=== PATIENT | male | born 1945 | race American Indian/Alaskan Native ===

== ENCOUNTER 2019-03-29 13:21 | Observation (INO) | payer MEDICARE ==
[2019-03-22 09:35] LABS: Basophils % (Auto) 1.1 % (0.0-1.8); Eosinophils # (Auto) 0.3 K/mm3 (0.0-0.4); Eosinophils % (Auto) 6.9 % (0.0-4.3); Hematocrit 38.5 % (35.5-45.6); Lymphocytes # (Auto) 0.7 K/mm3 (1.2-5.4); Lymphocytes % (Auto) 18.9 % (13.4-35.0); Mean Corpuscular HGB Conc 34 % (32-34); Mean Corpuscular Volume 82 fl (84-94); Monocytes # (Auto) 0.5 K/mm3 (0.0-0.8); Monocytes % (Auto) 12.6 % (0.0-7.3); Platelet Count 182 K/mm3 (140-440); Red Cell Distribution Width 15.8 % (13.2-15.2)
[2019-03-22 09:50] LABS: Alanine Aminotransferase 25 units/L (7-56); Albumin 3.6 g/dL (3.9-5); BUN/Creatinine Ratio 10; Blood Urea Nitrogen 14 mg/dL (9-20); Calcium 8.8 mg/dL (8.4-10.2); Hemolysis Index 11
[2019-03-22 09:57] LABS: INR 0.94 (0.87-1.13)
[2019-03-22 09:58] LABS: Partial Thromboplastin Time 26.3 Sec. (24.2-36.6)
--- NOTE | 2019-03-22 11:15 | Anesthesia Consultation ---
Anesthesia Consult and Med Hx Date of service: 03/22/19 - Airway Anesthetic Teeth Evaluation: Good ROM Head & Neck: Adequate Mental/Hyoid Distance: Adequate Mallampati Class: Class II Intubation Access Assessment: Probably Good - Pulmonary Exam CTA: Yes - Cardiac Exam Cardiac Exam: RRR - Pre-Operative Health Status ASA Pre-Surgery Classification: ASA2 Proposed Anesthetic Plan: General - Pulmonary Hx Smoking: No Hx Sleep Apnea: No (CLAY PRE SCREEN HIGH RISK) - Cardiovascular System Hx Hypertension: Yes Hx Heart Attack/AMI: No Hx Percutaneous Transluminal Coronary Angioplasty (PTCA): No - Central Nervous System CVA: No - Gastrointestinal Hx Gastroesophageal Reflux Disease: No - Endocrine Hx Renal Disease: No Hx Liver Disease: No Hx Insulin Dependent Diabetes: No Hx Non-Insulin Dependent Diabetes: No Hx Thyroid Disease: No - Other Systems Hx Obesity: No - Additional Comments Anesthesia Medical History Comments: No prior GA. No FHx anesthetic complications.
[2019-03-29] MEDS ORDERED: DIPRIVAN 10 MG/ML IV ONE (14:06)
[2019-03-29] MEDS ORDERED: XYLOCAINE MPF 2% ONE (14:06)
[2019-03-29] MEDS ORDERED: SUBLIMAZE ONE ×2 (14:06→15:28)
[2019-03-29] MEDS: LACTATED RINGERS 1,000 ML IV SCH ×2 (14:35→20:07)
[2019-03-29] MEDS ORDERED: ANCEF/STERILE WATER 2 GM/20 ML IV NR (15:00)
[2019-03-29] MEDS ORDERED: ZOFRAN ONE (16:01)
[2019-03-29] MEDS ORDERED: NACL 0.9% IR PRN ×2 (16:06→20:00)
[2019-03-29] MEDS ORDERED: AMBIEN PO PRN (16:06)
[2019-03-29] MEDS ORDERED: ZOFRAN IV PRN (16:06)
--- NOTE | 2019-03-29 16:06 | Post Operative Note ---
Date of procedure: 03/29/19 Pre-op diagnosis: urinary retention Post-op diagnosis: same Findings: middle lobe Procedure: cysto turp Surgeon: AMRITA MILLIGAN Estimated blood loss: 50-100ml Pathology: list (prostate) Specimen disposition: to lab Condition: stable Disposition: PACU
[2019-03-29] MEDS ORDERED: SUBLIMAZE IV PRN (16:38)
--- NOTE | 2019-03-29 16:38 | Anesthesia Day of Surgery ---
Anesthesia Day of Surgery - Day of Surgery Patient Examined: Yes Patient H&P Reviewed: Yes Patient is NPO: Yes
--- NOTE | 2019-03-29 16:47 | Operative Report ---
PREOPERATIVE DIAGNOSES: Urinary retention, prominent middle lobe; previous prostate cancer. POSTOPERATIVE DIAGNOSES: Urinary retention, prominent middle lobe; previous prostate cancer. PROCEDURE: Cystoscopy, transurethral resection of prostate. SURGEON: Jimi Nur MD ANESTHESIA: General. FINDINGS: This is a gentleman with urinary retention and high voiding pressures. He has been catheterizing himself. We told him we make a channel. We did not want to do that much to make him incontinent. DESCRIPTION OF PROCEDURE: The patient was brought to the operating room and placed on the operating table. Following induction of anesthesia, placed in lithotomy position, prepped and draped in usual sterile fashion. Cystourethroscopy showed a prominent middle lobe. This was resected down to capsular fibers. Hemostasis was excellent. The trigone and bladder was somewhat inflamed. We did not disturb it. Both lobes had some tissue, part of the middle lobe fell into the prostatic urethra, which had to be trimmed. The patient tolerated the procedure well. We did as little as possible. We want to give him a good channel so we could avoid and not catheterize himself. He tolerated the procedure well. Minimal blood loss, approximately 50 mL. He was brought to recovery in stable condition. JOB# [id number] MANJEET/ROCHELLE
--- NOTE | 2019-03-29 17:52 | Post Anesthesia Evaluation ---
- Post Anesthesia Evaluation Patient Participated: Yes Airway Patent: Yes Stable Respiratory Function: Yes Nausea/Vomiting: No Temp > 96.8F: Yes Pain Manageable: Yes Adequeate Hydration: Yes Anesthesia Complications: No
[2019-03-29] MEDS: PERCOCET 5/325 PO PRN (21:23)
[2019-03-29] MEDS: NACL 0.9% IR PRN ×2 (21:27→23:32)
[2019-03-29] MEDS ORDERED: APRESOLINE IV PRN (22:38)
[2019-03-29] MEDS: ANCEF/NS 1 GM/50 ML 1 GM/50 ML BAG IV SCH (23:32)
[2019-03-30] MEDS: NACL 0.9% IR PRN ×2 (04:00→06:23)
[2019-03-30 04:06] VITALS: BP 135/70
[2019-03-30] MEDS: LACTATED RINGERS 1,000 ML IV SCH (06:21)
[2019-03-30] MEDS: ANCEF/NS 1 GM/50 ML 1 GM/50 ML BAG IV SCH (06:21)
--- NOTE | 2019-03-30 08:26 | Progress Note ---
Assessment and Plan doing well urine clear home today with cath Subjective Date of service: 03/30/19 Principal diagnosis: AUR Objective - Constitutional Vitals: Vital Signs - 12hr 03/29/19 03/29/19 03/30/19 22:23 23:47 04:00 Temperature 97.8 F 98.2 F Pulse Rate 60 58 L Respiratory 17 19 18 Rate Blood Pressure 151/71 135/70 O2 Sat by Pulse 97 99 Oximetry General appearance: Present: no acute distress - Neck Neck: supple - Respiratory Respiratory effort: normal Extremities: no ischemia - Gastrointestinal General gastrointestinal: Present: soft, non-tender - Labs CBC & Chem 7: 03/22/19 09:15 03/22/19 09:15 Medications & Allergies - Medications Allergies/Adverse Reactions: Allergies No Known Allergies Allergy (Verified 03/16/19 12:09) Home Medications: Home Medications Medication Instructions Recorded Confirmed Last Taken Type AtorvaSTATin [Lipitor] 20 mg PO QHS 03/16/19 03/29/19 03/28/19 21:00 History Finasteride [Proscar] 5 mg PO DAILY 03/16/19 03/29/19 03/29/19 08:00 History Tamsulosin [Flomax] 0.4 mg PO QDAY 03/16/19 03/29/19 03/28/19 21:00 History amLODIPine [Norvasc] 5 mg PO DAILY 03/16/19 03/29/19 03/29/19 08:00 History Active Medications: Generic Name Dose Route Start Last Admin Trade Name Freq PRN Reason Stop Dose Admin Hydralazine HCl 10 mg 03/29/19 22:38 Apresoline IV Q4H PRN Blood Pressure Lactated Ringer's 1,000 mls @ 75 mls/hr 03/29/19 15:00 03/30/19 06:21 Lactated Ringers IV 75 mls/hr DIRECT OSIEL Administration Cefazolin Sodium 1 gm in 50 mls @ 100 mls/hr 03/29/19 23:00 03/30/19 06:21 Ancef/Ns 1 Gm/50 Ml IV 03/30/19 23:29 100 mls/hr Q8H OSIEL Administration Protocol Ondansetron HCl 4 mg 03/29/19 16:06 Zofran IV Q8H PRN Nausea And Vomiting Oxycodone/Acetaminophen 2 tab 03/29/19 16:06 03/29/19 21:23 Percocet 5/325 PO 2 tab Q6H PRN Administration Pain, Moderate (4-6) Sodium Chloride 1,000 ml 03/29/19 20:00 Nacl 0.9% IR Q2H PRN Wound Care Sodium Chloride 2,000 ml 03/29/19 19:51 03/30/19 06:23 Nacl 0.9% IR 2,000 ml DIRECT PRN Administration urology Zolpidem Tartrate 5 mg 03/29/19 16:06 Ambien PO QHS PRN Sleep
--- NOTE | 2019-03-30 08:27 | Discharge Summary ---
Short Stay Discharge Plan Activity: other (no straining ) Weight Bearing Status: Full Weight Bearing Diet: low fat, low cholesterol, low salt Durable Medical Equipment Needed Upon Discharge: other (home with ruiz ) Follow up with: FLOR AMIN MD [Primary Care Provider] - 7 Days AMRITA MILLIGAN MD [Staff Physician] - 04/03/19
[2019-03-30] MEDS: PERCOCET 5/325 PO PRN (09:28)
== END 2019-03-30 10:47 | disposition home or self-care (01) ==
LOC: OR 13:21 → 3B-SURG 16:06
PROVIDERS: ADMIT Urology; ATTEND Urology
DX: C61 Malignant neoplasm of prostate (principal); R33.8 Other retention of urine
CPT/HCPCS: 36415; 52601; 80053; 85025; 85610; 85730; 86850; 86900; 86901; 88305; 96365; 96366; A4217; G0378; J0690; J2405; J2704; J3010; J7120